=== PATIENT | female | born 1965 | race Two or more races ===

== ENCOUNTER 2021-10-16 07:22 | Emergency (ER) | payer BC, OTHER ==
[~2021-10-16] VITALS: Ht 165.1 cm; Wt 59.0 kg
[2021-10-16 07:49] LABS: Basophils # (auto) 0 10 ^3/uL (0-0.2); Basophils % (auto) 1.1 % (0.0-2.0); Eosinophils # (auto) 0.1 10 ^3/uL (0-0.8); Eosinophils % (auto) 2.4 % (0.0-7.0); Hematocrit 40.3 % (36.0-46.0); Hemoglobin 13.9 g/dL (12.2-16.2); Lymphocytes # (auto) 1.2 10 ^3/uL (0.4-5.4); Lymphocytes % (auto) 36.6 % (10.0-50.0); Mean Corpuscular Hemoglobin 31.5 pg (28.0-32.0); Mean Corpuscular Hgb Conc. 34.5 g/dL (32.0-36.0); Mean Corpuscular Volume 91.2 fL (80.0-100.0); Monocytes # (auto) 0.2 10 ^3/uL (0-1.3); Monocytes % (auto) 6.5 % (0.0-12.0); Neutrophils # (auto) 1.7 10 ^3/uL (1.6-8.6); Neutrophils % (auto) 53.4 % (37.0-80.0); Nucleated Red Blood Cells % 0.1 %; Red Blood Cells 4.42 10^6/uL (4.0-5.20); Red Cell Distribution Width 12.9 % (11.8-14.3); White Blood Cell 3.2 10^3/uL (4.4-10.8)
[2021-10-16 08:08] LABS: Albumin 3.8 g/dL (3.4-5.0); BUN/Creatinine Ratio 22.4; Calcium 8.8 mg/dL (8.5-10.1); Potassium 3.6 mmol/L (3.5-5.1)
[2021-10-16 08:11] LABS: Bilirubin, Total 0.3 mg/dL (0.2-1.0); Total Protein 7.7 g/dL (6.4-8.2)
[2021-10-16 08:41] LABS: Urine Bacteria FEW /hpf (None Seen); Urine Blood 1+ /uL (Negative); Urine Specific Gravity 1.022 (1.001-1.035); Urine WBC 12 /hpf (0 - 5)
[2021-10-16] MEDS ORDERED: cefTRIAXone 1GM/50ML D5W 50 ML IV ONE (10:30)
[2021-10-16] MEDS ORDERED: PROCHLORPERAZINE EDISYLATE 5 MG/ML 2ML VIAL IV ONE (10:30)
[2021-10-16] MEDS ORDERED: MECLIZINE HCL 25 MG TAB PO ONE (10:30)
[2021-10-16] MEDS ORDERED: SODIUM CHLORIDE 0.9% 1,000 ML IV ONE (10:30)
[2021-10-16] MEDS ORDERED: MECL1TAB42 PO (12:27)
[2021-10-16] MEDS ORDERED: CIPR-173 PO (12:27)
[2021-10-16 12:33] VITALS: BP 112/46
== END 2021-10-16 12:41 | disposition home or self-care (01) ==
LOC: ER 07:22
DX: H81.10 Benign paroxysmal vertigo, unspecified ear (principal); N39.0 Urinary tract infection, site not specified
CPT/HCPCS: 36415; 80053; 81001; 84484; 85025; 93005; 99285; J0696; J0780; J8597

== ENCOUNTER 2022-02-02 08:44 | Emergency (ER) | payer BC ==
[~2022-02-02] VITALS: Ht 165.1 cm; Wt 56.0 kg
[~2022-02-02 08:44] MED LIST: CIPR-173 PO; MECL1TAB42 PO
[2022-02-02 09:57] LABS: Basophils # (auto) 0 10 ^3/uL (0-0.2); Basophils % (auto) 0.2 % (0.0-2.0); Eosinophils # (auto) 0 10 ^3/uL (0-0.8); Hematocrit 41.4 % (36.0-46.0); Hemoglobin 13.8 g/dL (12.2-16.2); Lymphocytes # (auto) 0.7 10 ^3/uL (0.4-5.4); Lymphocytes % (auto) 5.7 % (10.0-50.0); Mean Corpuscular Hemoglobin 30.4 pg (28.0-32.0); Mean Corpuscular Hgb Conc. 33.4 g/dL (32.0-36.0); Mean Corpuscular Volume 91.1 fL (80.0-100.0); Monocytes # (auto) 0.8 10 ^3/uL (0-1.3); Neutrophils # (auto) 10.3 10 ^3/uL (1.6-8.6); Neutrophils % (auto) 87.1 % (37.0-80.0); Nucleated Red Blood Cells % 0.1 %; Red Blood Cells 4.55 10^6/uL (4.0-5.20); White Blood Cell 11.8 10^3/uL (4.4-10.8)
[2022-02-02 09:57] LABS: Urine Bacteria MANY /hpf (None Seen); Urine Blood 3+ /uL (Negative); Urine Mucus FEW (None Seen); Urine Specific Gravity 1.018 (1.001-1.035); Urine WBC 549 /hpf (0 - 5); Urine WBC Clumps PRESENT /hpf (None Seen)
[2022-02-02 10:10] LABS: Albumin 3.9 g/dL (3.4-5.0); Calcium 9.1 mg/dL (8.5-10.1); Potassium 3.3 mmol/L (3.5-5.1)
[2022-02-02 10:15] LABS: BUN/Creatinine Ratio 16.7; Total Protein 8.4 g/dL (6.4-8.2)
[2022-02-02] MEDS ORDERED: NITR-87 PO (12:46)
[2022-02-02] MEDS ORDERED: POTASSIUM EFFERVESENT TAB 25 MEQ PO ONE (13:00)
[2022-02-02] MEDS ORDERED: cefTRIAXone W LIDOCAINE 1 GM IM IM ONE (13:00)
[2022-02-02] MEDS ORDERED: ONDANSETRON ODT 4 MG TAB PO ONE (13:15)
[2022-02-02] MEDS ORDERED: cefTRIAXone SOD 1,000 MG VL ONE (17:19)
[2022-02-02] MEDS ORDERED: LIDOCAINE 1% (LOCAL ANESTH.) PF 5ml SDV ONE (17:20)
[2022-02-02 17:32] VITALS: BP 120/60
== END 2022-02-02 17:38 | disposition home or self-care (01) ==
LOC: ER 08:44
DX: E87.6 Hypokalemia (principal); N39.0 Urinary tract infection, site not specified
CPT/HCPCS: 36415; 80053; 81001; 85025; 93005; 96372; 99284; J0696; Q0162